=== PATIENT | male | born 1995 | race Two or more races ===

== ENCOUNTER 2017-05-03 18:49 | Emergency (ER) | payer OTHER ==
[2017-05-03 19:13] VITALS: BP 155/87; PULSE 78; RESP 18; TEMP 98.2
--- NOTE | 2017-05-03 19:22 | ED ---
General Adult HPI - General Chief complaint: Extremity Injury, Upper Stated complaint: Pain in hands in arms Time Seen by Provider: 05/03/17 19:14 Source: patient, RN notes reviewed Mode of arrival: ambulatory Limitations: no limitations - History of Present Illness Initial comments: 21-year-old male presents emergency Department chief complaint of numbness and tingling to fingers and pain in the forearm. 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 Patient states intensive does get sharp shooting pains. Patient has any falls traumas or injuries to the wrist. Patient states it's been getting worse over the last few weeks. Patient was concerned due to his symptoms he thought that he should be evaluated. Patient denies any recent fever, chills, shortness of breath, chest pain, back pain, abdominal pain, nausea vomiting, numbness or tingling, dysuria or hematuria, constipation or diarrhea, headaches or visual changes, or any other current symptoms. - Related Data Home Medications Medication Instructions Recorded Confirmed Acetaminophen Tab [Tylenol Tab] 975 mg PO BID PRN 05/03/17 05/03/17 Allergies Allergy/AdvReac Type Severity Reaction Status Date / Time No Known Allergies Allergy Verified 05/03/17 19:14 Review of Systems ROS Statement: Those systems with pertinent positive or pertinent negative responses have been documented in the HPI. ROS Other: All systems not noted in ROS Statement are negative. Past Medical History Past Medical History: No Reported History History of Any Multi-Drug Resistant Organisms: None Reported Past Surgical History: Appendectomy Past Psychological History: Anxiety, Depression Smoking Status: Current every day smoker Past Alcohol Use History: Occasional Past Drug Use History: Marijuana General Exam - General Exam Comments Initial Comments: General: The patient is awake and alert, in no distress, and does not appear acutely ill. Neck: The neck is supple, there is no tenderness or JVD. Cardiovascular: There is a regular rate and rhythm. No murmur, rub or gallop is appreciated. Respiratory: Lungs are clear to auscultation, respirations are non-labored, breath sounds are equal. No wheezes, stridor, rales, or rhonchi. Musculoskeletal: Sensation intact with 2+ pulses throughout bilateral upper changes from range of motion of bilateral elbows recent use. Patient has bilateral positive Tinel sign. No bony tenderness. Neurological: CN II-XII intact, There are no obvious motor or sensory deficits. Coordination appears grossly intact. Speech is normal. Skin: Skin is warm and dry and no rashes or lesions are noted. Psychiatric: Normal mood and affect. Limitations: no limitations Course Vital Signs 05/03/17 19:11 Temperature 98.2 F Pulse Rate 78 Respiratory 18 Rate Blood Pressure 155/87 O2 Sat by Pulse 98 Oximetry Medical Decision Making - Medical Decision Making 21-year-old male presents for what appears to be suspicious for carpal tunnel. This and we did write him a prescription for wrist splints. We discussed care follow-up and return parameters all patient's questions. They state Timothy they are given plan. They will be discharged home. Disposition Clinical Impression: Carpal tunnel syndrome on both sides Disposition: HOME SELF-CARE Condition: Stable Instructions: Paresthesia (ED) Additional Instructions: Please use medication as discussed. Please follow up with family doctor if symptoms have not improved over the next two days. Please return to the emergency room if your symptoms increase or worsen or for any other concerns. Referrals: Jonnathan Treadwell MD [Medical Doctor] - 1-2 days Time of Disposition: 19:21
== END 2017-05-03 19:41 | disposition home or self-care (01) ==
LOC: EC 18:49
DX: G56.03 Carpal tunnel syndrome, bilateral upper limbs (principal); F17.200 Nicotine dependence, unspecified, uncomplicated
CPT/HCPCS: 99283

== ENCOUNTER 2017-05-15 18:55 | Emergency (ER) | payer OTHER ==
--- NOTE | 2017-05-15 19:38 | ED ---
General Adult HPI - General Chief complaint: Dental/Oral Stated complaint: Dental Pain Time Seen by Provider: 05/15/17 19:20 Source: patient, RN notes reviewed Mode of arrival: ambulatory Limitations: no limitations - History of Present Illness Initial comments: 21-year-old male presents emergency department with a chief complaint of left- sided dental pain. Patient states that this started over the last few weeks over the last 5 days and getting worse. He has pain he has pain when he drinks. Patient denies any pain into the neck. Patient denies any difficulty opening closing the mouth. Patient denies any history of fevers. Patient does admit to a history of dental issues in the past. Patient denies any recent fever , chills, shortness of breath, chest pain, back pain, abdominal pain, nausea vomiting, numbness or tingling, dysuria or hematuria, constipation or diarrhea, headaches or visual changes, or any other current symptoms. - Related Data Home Medications Medication Instructions Recorded Confirmed Acetaminophen Tab [Tylenol Tab] 975 mg PO BID PRN 05/03/17 05/03/17 Allergies Allergy/AdvReac Type Severity Reaction Status Date / Time No Known Allergies Allergy Verified 05/15/17 19:14 Review of Systems ROS Statement: Those systems with pertinent positive or pertinent negative responses have been documented in the HPI. ROS Other: All systems not noted in ROS Statement are negative. Past Medical History Past Medical History: No Reported History History of Any Multi-Drug Resistant Organisms: None Reported Past Surgical History: Appendectomy Past Psychological History: Anxiety, Depression Smoking Status: Current every day smoker Past Alcohol Use History: Occasional Past Drug Use History: Marijuana General Exam Limitations: no limitations General appearance: alert, in no apparent distress Head exam: Present: atraumatic ENT exam: Present: normal exam, mucous membranes moist, other (Patient does appear to have eroded left tooth #18 no abscess, no gingival enlargement, diffuse poor dentition) Neck exam: Present: normal inspection. Absent: tenderness, meningismus, lymphadenopathy Respiratory exam: Present: normal lung sounds bilaterally. Absent: respiratory distress, wheezes, rales, rhonchi, stridor Cardiovascular Exam: Present: regular rate, normal rhythm, normal heart sounds. Absent: systolic murmur, diastolic murmur, rubs, gallop, clicks Back exam: Present: normal inspection Neurological exam: Present: alert, oriented X3 Psychiatric exam: Present: normal affect, normal mood Skin exam: Present: warm, dry, intact, normal color. Absent: rash Course Vital Signs 05/15/17 19:12 Temperature 97.8 F Pulse Rate 78 Respiratory 20 Rate Blood Pressure 184/98 O2 Sat by Pulse 99 Oximetry Medical Decision Making - Medical Decision Making Physical 21-year-old female presents emergency chief complaint of left-sided dental pain. This elicits patient denies any medication. We discussed proper the dentist. We discussed return parameters all patient's questions. He stated he understood and he is given plan. Discharged Disposition Clinical Impression: Dental caries Disposition: HOME SELF-CARE Condition: Stable Instructions: Dental Caries (ED) Additional Instructions: Please use medication as discussed. Please follow up with family doctor if symptoms have not improved over the next two days. Please return to the emergency room if your symptoms increase or worsen or for any other concerns. Referrals: Heber Tim MD [STAFF PHYSICIAN] - 1-2 days Time of Disposition: 19:38
[2017-05-15 19:55] VITALS: BP 168/80; PULSE 70; RESP 18; TEMP 98.2
== END 2017-05-15 19:54 | disposition home or self-care (01) ==
LOC: EC 18:55
DX: K02.9 Dental caries, unspecified (principal); F17.200 Nicotine dependence, unspecified, uncomplicated
CPT/HCPCS: 99282

== ENCOUNTER 2017-05-25 13:18 | Emergency (ER) | payer OTHER ==
[2017-05-25 13:24] VITALS: TEMP 98
[2017-05-25] MEDS ORDERED: ONDANSETRON 4 MG/2 ML VIAL IVP STA (14:50)
[2017-05-25] MEDS ORDERED: SODIUM CHLORIDE 0.9% 1,000 ML IV STA ×2 (14:50)
[2017-05-25] MEDS ORDERED: KETOROLAC 30 MG/ML 1 ML VIAL IVP STA (14:51)
--- NOTE | 2017-05-25 14:57 | ED ---
General Adult HPI - General Chief complaint: Nausea/Vomiting/Diarrhea Stated complaint: Vomiting Time Seen by Provider: 05/25/17 14:47 Source: patient, RN notes reviewed Mode of arrival: ambulatory Limitations: no limitations - History of Present Illness Initial comments: 21-year-old male presents with a 2 day history of nausea vomiting and diarrhea. Patient has coworkers with similar symptoms. Patient has crampy generalized abdominal pain. He also has reported some subjective fever and chills. Had one episode of vomiting today, several episodes yesterday. He has had diarrhea every time he has eaten over the past 24 hours. Patient is not currently on any medication. Has past surgical history of appendectomy. - Related Data Previous Rx's Medication Instructions Recorded Ondansetron Odt [Zofran Odt] 4 mg PO Q8HR PRN #10 tab 05/25/17 Allergies Allergy/AdvReac Type Severity Reaction Status Date / Time No Known Allergies Allergy Verified 05/25/17 13:24 Review of Systems ROS Statement: Those systems with pertinent positive or pertinent negative responses have been documented in the HPI. ROS Other: All systems not noted in ROS Statement are negative. Past Medical History Past Medical History: No Reported History History of Any Multi-Drug Resistant Organisms: None Reported Past Surgical History: Appendectomy Past Psychological History: Anxiety, Depression Smoking Status: Current every day smoker Past Alcohol Use History: Occasional Past Drug Use History: Marijuana General Exam Limitations: no limitations General appearance: alert, in no apparent distress Head exam: Present: atraumatic, normocephalic Eye exam: Present: normal appearance, PERRL ENT exam: Present: mucous membranes dry Neck exam: Present: normal inspection. Absent: tenderness Respiratory exam: Present: normal lung sounds bilaterally. Absent: respiratory distress Cardiovascular Exam: Present: regular rate, normal rhythm GI/Abdominal exam: Present: soft, tenderness (Mild epigastric tenderness). Absent: distended Extremities exam: Present: normal inspection, normal capillary refill. Absent: pedal edema Neurological exam: Present: alert, oriented X3 Psychiatric exam: Present: normal affect, normal mood Skin exam: Present: warm, dry, intact. Absent: cyanosis, diaphoretic Course Vital Signs 05/25/17 05/25/17 13:23 15:41 Temperature 98 F Pulse Rate 80 90 Respiratory 18 18 Rate Blood Pressure 164/85 148/96 O2 Sat by Pulse 96 100 Oximetry Medical Decision Making - Medical Decision Making 21-year-old male with no significant past medical history presents with chief complaint of nausea vomiting diarrhea. Patient's coworkers have similar symptoms. Last episode of vomiting was earlier this morning. On initial evaluation patient appears well-hydrated, no acute distress. Abdomen is soft. X-rays obtained, shows no acute findings. There is evidence of an enlarged liver. Patient is very obese. CBC CMP are unremarkable. Patient receives IV hydration, antiemetics. On reevaluation patient is feeling better. Has not had any vomiting while in emergency department. He will follow-up with his primary care physician in the next several days. - Lab Data Result diagrams: 05/25/17 14:55 05/25/17 14:55 Lab Results 05/25/17 05/25/17 Range/Units 14:55 14:55 WBC 8.1 (4.0-11.0) k/uL RBC 4.61 (4.30-5.90) m/uL Hgb 14.9 (13.0-17.5) gm/dL Hct 44.9 (39.0-53.0) % MCV 97.4 (80.0-100.0) fL MCH 32.3 (25.0-35.0) pg MCHC 33.1 (31.0-37.0) g/dL RDW 12.9 (11.5-15.5) % Plt Count 300 (150-450) k/uL Neutrophils % 57 % Lymphocytes % 28 % Monocytes % 6 % Eosinophils % 6 % Basophils % 1 % Neutrophils # 4.6 (1.3-7.7) k/uL Lymphocytes # 2.3 (1.0-4.8) k/uL Monocytes # 0.5 (0-1.0) k/uL Eosinophils # 0.5 (0-0.7) k/uL Basophils # 0.1 (0-0.2) k/uL Sodium 140 (137-145) mmol/L Potassium 4.5 (3.5-5.1) mmol/L Chloride 102 (98-107) mmol/L Carbon Dioxide 26 (22-30) mmol/L Anion Gap 12 mmol/L BUN 10 (9-20) mg/dL Creatinine 0.58 L (0.66-1.25) mg/dL Est GFR (MDRD) Af Amer >60 (>60 ml/min/1.73 sqM) Est GFR (MDRD) Non-Af >60 (>60 ml/min/1.73 sqM) Glucose 101 H (74-99) mg/dL Calcium 9.7 (8.4-10.2) mg/dL Total Bilirubin 0.2 (0.2-1.3) mg/dL AST 29 (17-59) U/L ALT 66 (21-72) U/L Alkaline Phosphatase 54 (38-126) U/L Total Protein 7.9 (6.3-8.2) g/dL Albumin 4.7 (3.5-5.0) g/dL Amylase <30 L (30-110) U/L Lipase 63 (23-300) U/L Disposition Clinical Impression: Nausea & vomiting Disposition: HOME SELF-CARE Condition: Good Instructions: Acute Nausea and Vomiting (ED), Acute Diarrhea (ED) Prescriptions: Ondansetron Odt [Zofran Odt] 4 mg PO Q8HR PRN #10 tab PRN Reason: Vomiting Referrals: None,Stated [Primary Care Provider] - 1-2 days Time of Disposition: 15:48
[2017-05-25 15:16] LABS: Basophils # (A) 0.1 k/uL (0-0.2); Basophils % (A) 1 %; Eosinophils # (A) 0.5 k/uL (0-0.7); Eosinophils % (A) 6 %; HCT 44.9 % (39.0-53.0); HDW 2.25; HGB 14.9 gm/dL (13.0-17.5); Luc # (Auto) 0.14; Luc % (Auto) 2; Lymphocytes # (A) 2.3 k/uL (1.0-4.8); Lymphocytes % (A) 28 %; MCH 32.3 pg (25.0-35.0); MCHC 33.1 g/dL (31.0-37.0); MCV 97.4 fL (80.0-100.0); Mean Platelet Volume 7.3; Monocytes # (A) 0.5 k/uL (0-1.0); Monocytes % (A) 6 %; Neutrophils # (A) 4.6 k/uL (1.3-7.7); Neutrophils % (A) 57 %; RBC 4.61 m/uL (4.30-5.90); RDW 12.9 % (11.5-15.5); WBC 8.1 k/uL (4.0-11.0); WBC (Perox) 8.09
--- NOTE | 2017-05-25 15:23 | XR ---
Abdomen HISTORY: Nausea vomiting and diarrhea Frontal view of the abdomen submitted on 2 images No comparisons The lung bases are clear. There is no bowel obstruction or pneumoperitoneum evident. Bone mineralizat ion is maintained. No evident pathologic calcification. The liver may be enlarged. IMPRESSION: Nonobstructive bowel gas pattern. Additional findings above.
[2017-05-25 15:29] LABS: ALT 66 U/L (21-72); AST 29 U/L (17-59); Alkaline Phosphatase 54 U/L (38-126); Amylase <30 U/L (30-110); Anion Gap 12 mmol/L; Blood Urea Nitrogen 10 mg/dL (9-20); Calcium 9.7 mg/dL (8.4-10.2); Carbon Dioxide 26 mmol/L (22-30); Chloride 102 mmol/L (98-107); Glucose 101 mg/dL (74-99); Non-African American GFR(MDRD) >60 (>60 ml/min/1.73 sqM); Potassium 4.5 mmol/L (3.5-5.1); Sodium 140 mmol/L (137-145); Total Bilirubin 0.2 mg/dL (0.2-1.3); Total Protein 7.9 g/dL (6.3-8.2)
[2017-05-25 16:01] VITALS: BP 162/85; PULSE 63; RESP 16
== END 2017-05-25 16:01 | disposition home or self-care (01) ==
LOC: EC 13:18
DX: R11.2 Nausea with vomiting, unspecified (principal); R19.7 Diarrhea, unspecified; R10.84 Generalized abdominal pain; F17.200 Nicotine dependence, unspecified, uncomplicated; Z90.49 Acquired absence of other specified parts of digestive tract
CPT/HCPCS: 36415; 80053; 82150; 83690; 85025; 74000; 99284; 96374; 96375; 96361; J2405; J1885

== ENCOUNTER 2017-06-07 14:49 | Emergency (ER) | payer SELFPAY ==
[2017-06-07 15:15] VITALS: BP 179/91; PULSE 97; RESP 18; TEMP 97.7
--- NOTE | 2017-06-07 15:20 | ED ---
General Adult HPI - General Chief complaint: Dental/Oral Stated complaint: Dental Pain Time Seen by Provider: 06/07/17 14:58 Source: patient, RN notes reviewed, old records reviewed Mode of arrival: ambulatory Limitations: no limitations - History of Present Illness Initial comments: Patient 21-year-old male who presents emergency room today with chief complaint of dental pain. He does not that he's had dental pain on and off over the last month. States seen here in the past 4 days. Has not taken any medications for this. States she's been unable to follow up with dentist. He denies any other complaints. States pain is worse to the left lower jaw he feels that there is some swelling in this area. Patient denies any recent fever, chills, shortness of breath, chest pain, back pain, abdominal pain, nausea or vomiting, numbness or tingling, dysuria or hematuria, constipation or diarrhea, headaches or visual changes, or any other complaints. - Related Data Home Medications Medication Instructions Recorded Confirmed Acetaminophen Tab [Tylenol Tab] 975 mg PO Q6H PRN 06/07/17 06/07/17 Ibuprofen [Motrin] 800 mg PO TID PRN 06/07/17 06/07/17 Previous Rx's Medication Instructions Recorded Acetaminophen-Codeine 300-30mg 1 each PO Q6H PRN #10 tablet 06/07/17 [Tylenol #3] Ibuprofen [Motrin] 600 mg PO Q6HR PRN #30 day 06/07/17 Penicillin V Potassium [Pen Vee K] 500 mg PO QID 10 Days 06/07/17 Allergies Allergy/AdvReac Type Severity Reaction Status Date / Time No Known Allergies Allergy Verified 06/07/17 15:12 Review of Systems ROS Statement: Those systems with pertinent positive or pertinent negative responses have been documented in the HPI. ROS Other: All systems not noted in ROS Statement are negative. Past Medical History Past Medical History: No Reported History History of Any Multi-Drug Resistant Organisms: None Reported Past Surgical History: Appendectomy Past Psychological History: Anxiety, Depression Smoking Status: Current every day smoker Past Alcohol Use History: Occasional Past Drug Use History: Marijuana General Exam - General Exam Comments Initial Comments: General: The patient is awake and alert, in no distress, and does not appear acutely ill. Eye: Pupils are equal, round and reactive to light, extra-ocular movements are intact. No nystagmus. There is normal conjunctiva bilaterally. No signs of icterus. Ears, nose, mouth and throat: There are moist mucous membranes and no oral lesions. Neck: The neck is supple, there is no tenderness or JVD. Cardiovascular: There is a regular rate and rhythm. No murmur, rub or gallop is appreciated. Respiratory: Lungs are clear to auscultation, respirations are non-labored, breath sounds are equal. No wheezes, stridor, rales, or rhonchi. Musculoskeletal: Normal ROM, no tenderness. Strength 5/5. Sensation intact. Pulses equal bilaterally 2+. Neurological: A&O x 3. CN II-XII intact, There are no obvious motor or sensory deficits. Coordination appears grossly intact. Speech is normal. Skin: Skin is warm and dry and no rashes or lesions are noted. Psychiatric: Cooperative, appropriate mood & affect, normal judgment. Limitations: no limitations Course Vital Signs 06/07/17 14:55 Temperature 97.7 F Pulse Rate 97 Respiratory 18 Rate Blood Pressure 179/91 O2 Sat by Pulse 96 Oximetry Medical Decision Making - Medical Decision Making Patient will be started on antibiotic. During short prescription pain medication to use. Advised may make him drowsy that she uses at night to help him sleep. Advised follow-up with dentist as soon as possible. Advised return for concerns. Disposition Clinical Impression: Pain, dental Disposition: HOME SELF-CARE Condition: Good Instructions: Toothache (ED) Additional Instructions: Please follow-up with dentist as soon as possible. Please use medication as prescribed. Be aware that pain medication may make you drowsy. Please return to emergency room for any other concerns. Prescriptions: Acetaminophen-Codeine 300-30mg [Tylenol #3] 1 each PO Q6H PRN #10 tablet PRN Reason: Pain Ibuprofen [Motrin] 600 mg PO Q6HR PRN #30 day PRN Reason: Pain Penicillin V Potassium [Pen Vee K] 500 mg PO QID 10 Days Referrals: None,Stated [Primary Care Provider] - 1-2 days Time of Disposition: 15:19
== END 2017-06-07 15:31 | disposition home or self-care (01) ==
LOC: EC 14:49
DX: K08.89 Other specified disorders of teeth and supporting structures (principal); F17.200 Nicotine dependence, unspecified, uncomplicated
CPT/HCPCS: 99283

== ENCOUNTER 2018-03-11 13:24 | Emergency (ER) | payer OTHER ==
[2018-03-11 13:38] VITALS: BP 167/98; PULSE 68; RESP 18; TEMP 97.6
--- NOTE | 2018-03-11 15:22 | ED ---
ENT HPI - General Chief complaint: Dental/Oral Stated complaint: dental pain Time Seen by Provider: 03/11/18 13:55 Source: patient Mode of arrival: ambulatory Limitations: no limitations - History of Present Illness Initial comments: The 22-year-old male with past medical history of previous dental abscess who presents today for chief complaint of increasing tooth pain and mild facial swelling 3 days. Patient states that he has had a hole in his left back tooth , this is tooth #18 as well as tooth #15 for over a year. 3 days ago he began to have increasing pain in both the teeth, he saw a hole in tooth #18 of which she bought [id number] which he cannot recall the name to fill the whole. He tried taking 2 Motrin a day and attempt to alleviate the pain however because he was in tears today because of the pain he decided present to the emergency department. Patient denies swelling under the tongue, difficulty breathing, pain with swallowing, neck swelling, chest pain, shortness of breath , ear pain, fever or chills. Patient states this feels exactly like when he had a tooth abscess in the past and had have the tooth removed. in addition patient denies any recent back pain, abdominal pain, nausea or vomiting, numbness or tingling, dysuria or hematuria, constipation or diarrhea, headaches or visual changes, or any other complaints. She denies drug ALLERGIES and has not been any recentantibiotics. - Related Data Home Medications Medication Instructions Recorded Confirmed Acetaminophen Tab [Tylenol Tab] 975 mg PO Q6H PRN 06/07/17 06/07/17 Ibuprofen [Motrin] 800 mg PO TID PRN 06/07/17 06/07/17 Previous Rx's Medication Instructions Recorded Acetaminophen-Codeine 300-30mg 1 each PO Q6H PRN #10 tablet 06/07/17 [Tylenol #3] Ibuprofen [Motrin] 600 mg PO Q6HR PRN #30 day 06/07/17 Penicillin V Potassium [Pen Vee K] 500 mg PO QID 10 Days day 06/07/17 Ibuprofen [Motrin] 800 mg PO Q6H PRN 7 Days #28 tab 03/11/18 Penicillin V Potassium [Pen Vee K] 500 mg PO QID 7 Days #28 tablet 03/11/18 Allergies Allergy/AdvReac Type Severity Reaction Status Date / Time No Known Allergies Allergy Verified 03/11/18 13:36 Review of Systems ROS Statement: Those systems with pertinent positive or pertinent negative responses have been documented in the HPI. ROS Other: All systems not noted in ROS Statement are negative. Constitutional: Denies: fever, chills Eyes: Denies: eye pain ENT: Reports: as per HPI, dental pain. Denies: ear pain, throat pain Respiratory: Denies: cough, dyspnea Cardiovascular: Denies: chest pain, palpitations Endocrine: Denies: fatigue Gastrointestinal: Denies: abdominal pain, nausea, vomiting Genitourinary: Denies: urgency, dysuria, frequency Skin: Reports: as per HPI Neurological: Denies: headache, weakness Hematological/Lymphatic: Denies: swollen glands Past Medical History Past Medical History: No Reported History History of Any Multi-Drug Resistant Organisms: None Reported Past Surgical History: Appendectomy Past Psychological History: Anxiety, Depression Smoking Status: Current every day smoker Past Alcohol Use History: Occasional Past Drug Use History: Marijuana General Exam - General Exam Comments Initial Comments: General: The patient is awake and alert, in no distress, and does not appear acutely ill. Eye: Pupils are equal, round and reactive to light, extra-ocular movements are intact. No nystagmus. There is normal conjunctiva bilaterally. No signs of icterus. Ears, nose, mouth and throat: There are moist mucous membranes and no oral lesions. There is mild edema of the left side his his face, no swelling both low the angle of the mandible. No swelling or masses below the tongue. No palpable cervical lymph nodes. Examination of the left ear benign. Tooth #15 crackeed and tooth #18 is filled with white putty like substance, appears to be filling a hole. There is tenderness to percussion of tooth #18 in tooth #15, no evidence of areas of focal fluctuance,or sinus tracking. there is edema of the the buccal mucosa on the left side of the upper and lower jaw. Neck: The neck is supple, there is no tenderness or JVD. Cardiovascular: There is a regular rate and rhythm. No murmur, rub or gallop is appreciated. Respiratory: Lungs are clear to auscultation, respirations are non-labored, breath sounds are equal. No wheezes, stridor, rales, or rhonchi..] Musculoskeletal: Normal ROM, upon gross exam. Strength 5/5. Sensation intact. Pulses equal bilaterally 2+. Neurological: A&O x 3. CN II-XII intact, There are no obvious motor or sensory deficits. Coordination appears grossly intact. Speech is normal. Skin: Skin is warm and dry and no rashes or lesions are noted. Mild swelling of the left side of face. Psychiatric: Cooperative, appropriate mood & affect, normal judgment. Limitations: no limitations Course Vital Signs 03/11/18 13:36 Temperature 97.6 F Pulse Rate 68 Respiratory 18 Rate Blood Pressure 167/98 O2 Sat by Pulse 99 Oximetry Medical Decision Making - Medical Decision Making This is a 22-year-old male past medical history previous dental abscess presents today for tooth pain 3 days. Patient is taking Motrin 2x day attempt to alleviate the pain which helped minimally. Patient presents for uncontrolled pain. Patient is NO KNOWN DRUG ALLERGIES. On exam there is pain to percussion of tooth #18, tooth #15. Tooth #15 is cracked. Tooth #18 appears to be filled with a putty-like substance. No palpable fluctuant area, and mild edema of the left buccal mucosa. No sign of Frandy angina. afebrile. Given history of physical exam findings, I do feel that this is a possible periapical abscess of tooth #15 & tooth #18- due to to pain with percussion of the teeth. The case was discussed with Dr. Tim who agrees with dx and feels at this time the patient is to follow-up with his dentist or oral surgery for tooth extraction and be given RX for PVK for infection prevention as well as ibuprofen 800mg for pain relief. Pt agrees with plan and is discharged in stable condition. Pt told educated on signs of worsening symptoms and infection told to return to the ED if the symptoms worsen. Disposition Clinical Impression: Periapical abscess Disposition: HOME SELF-CARE Condition: Good Instructions: Dental Abscess (ED), Toothache (ED) Additional Instructions: Please use medication as discussed. Please follow-up with dentist or oral surgery in the next 2 days regardless if symptoms improve with treatment. Please return to emergency room if the symptoms increase or worsen or for any other concerns. Prescriptions: Ibuprofen [Motrin] 800 mg PO Q6H PRN 7 Days #28 tab PRN Reason: Pain Penicillin V Potassium [Pen Vee K] 500 mg PO QID 7 Days #28 tablet Is patient prescribed a controlled substance at d/c from ED?: No Referrals: None,Stated [Primary Care Provider] - 1-2 days Heber Vizcarra DDS [STAFF PHYSICIAN] - 1-2 days Time of Disposition: 15:25
== END 2018-03-11 15:30 | disposition home or self-care (01) ==
LOC: EC 13:24
DX: K04.7 Periapical abscess without sinus (principal); F17.200 Nicotine dependence, unspecified, uncomplicated
CPT/HCPCS: 99282

== ENCOUNTER 2018-03-18 12:41 | Emergency (ER) | payer OTHER ==
[2018-03-18 12:58] VITALS: BP 148/89; PULSE 67; RESP 18; TEMP 97.5
[2018-03-18] MEDS ORDERED: ACET/COD 300 MG/30 MG STARTER PACK 6 TAB BTL PO STA (13:10)
--- NOTE | 2018-03-18 13:11 | ED ---
General Adult HPI - General Chief complaint: Dental/Oral Stated complaint: dental pain Source: patient, RN notes reviewed Mode of arrival: ambulatory Limitations: no limitations - History of Present Illness Initial comments: Patient 22 year-old male presented to the emergency room today with a chief complaint of increased dental pain. Patient does admit that he's had dental pain for 3 years. Patient states that over the last week she's been having increased pain. He states it's both in the upper and lower jaw the left side. He denies any drainage or discharge. He states been using Motrin along with ibuprofen/Tylenol. He states he was started on penicillin seeing her the emergency room. Patient states he is waiting to get into his dentist he has an appointment this Sunday. Patient since return to the emergency room because he is having increased pain. Patient denies any recent fever, chills, shortness of breath, chest pain, back pain, abdominal pain, nausea or vomiting, numbness or tingling, dysuria or hematuria, constipation or diarrhea, headaches or visual changes, or any other complaints. - Related Data Home Medications Medication Instructions Recorded Confirmed Acetaminophen Tab [Tylenol Tab] 975 mg PO Q6H PRN 06/07/17 06/07/17 Ibuprofen [Motrin] 800 mg PO TID PRN 06/07/17 06/07/17 Previous Rx's Medication Instructions Recorded Acetaminophen-Codeine 300-30mg 1 each PO Q6H PRN #10 tablet 06/07/17 [Tylenol #3] Ibuprofen [Motrin] 600 mg PO Q6HR PRN #30 day 06/07/17 Penicillin V Potassium [Pen Vee K] 500 mg PO QID 10 Days day 06/07/17 Ibuprofen [Motrin] 800 mg PO Q6H PRN 7 Days #28 tab 03/11/18 Penicillin V Potassium [Pen Vee K] 500 mg PO QID 7 Days #28 tablet 03/11/18 Clindamycin HCl 300 mg PO Q6H #40 cap 03/18/18 Allergies Allergy/AdvReac Type Severity Reaction Status Date / Time No Known Allergies Allergy Verified 03/18/18 12:58 Review of Systems ROS Statement: Those systems with pertinent positive or pertinent negative responses have been documented in the HPI. ROS Other: All systems not noted in ROS Statement are negative. Past Medical History Past Medical History: No Reported History History of Any Multi-Drug Resistant Organisms: None Reported Past Surgical History: Appendectomy Past Psychological History: Anxiety, Depression Smoking Status: Current every day smoker Past Alcohol Use History: Occasional Past Drug Use History: Marijuana General Exam - General Exam Comments Initial Comments: General: The patient is awake and alert Eye: Pupils are equal, round and reactive to light, extra-ocular movements are intact. No nystagmus. There is normal conjunctiva bilaterally. No signs of icterus. Ears, nose, mouth and throat: There are moist mucous membranes and no oral lesions. Neck: The neck is supple Musculoskeletal: Normal ROM, no tenderness. Strength 5/5. Sensation intact. Pulses equal bilaterally 2+. Neurological: A&O x 3. CN II-XII intact, There are no obvious motor or sensory deficits. Coordination appears grossly intact. Speech is normal. Skin: Skin is warm and dry and no rashes or lesions are noted. Psychiatric: Cooperative, appropriate mood & affect, normal judgment. Limitations: no limitations Course Vital Signs 03/18/18 12:56 Temperature 97.5 F L Pulse Rate 67 Respiratory 18 Rate Blood Pressure 148/89 O2 Sat by Pulse 99 Oximetry Medical Decision Making - Medical Decision Making Patient will be given prescription for clindamycin. He is advised follow-up with dentist. Will be given a starter pack Tylenol codeine here in the emergency room. Disposition Clinical Impression: Pain, dental Disposition: HOME SELF-CARE Condition: Good Instructions: Toothache (ED) Additional Instructions: Please follow-up with dentist and use antibiotic and pain medication as discussed. [facility] [address] [id number] [phone]) (existing clients only) For new clients: [phone] [facility] Pay $50 for x-rays and the rest discovered [phone] Prescriptions: Clindamycin HCl 300 mg PO Q6H #40 cap Is patient prescribed a controlled substance at d/c from ED?: No Referrals: None,Stated [Primary Care Provider] - 1-2 days Time of Disposition: 13:10
== END 2018-03-18 13:24 | disposition home or self-care (01) ==
LOC: EC 12:41
DX: K08.89 Other specified disorders of teeth and supporting structures (principal); F17.200 Nicotine dependence, unspecified, uncomplicated
CPT/HCPCS: 99282

== ENCOUNTER 2018-07-21 14:05 | Emergency (ER) | payer OTHER ==
[2018-07-21 14:09] VITALS: BP 161/93; PULSE 104; RESP 20; TEMP 97.8
[2018-07-21] MEDS ORDERED: KETOROLAC 30 MG/ML 1 ML VIAL IM STA (14:30)
--- NOTE | 2018-07-21 15:04 | ED ---
General Adult HPI - General Chief complaint: Extremity Injury, Lower Stated complaint: Knee pain Time Seen by Provider: 07/21/18 14:11 Source: patient, RN notes reviewed Mode of arrival: wheelchair Limitations: physical limitation - History of Present Illness Initial comments: 22-year-old male presents to the emergency department for a chief complaint of left knee pain 1 hour. Patient [place] a seaw[place]. He states he fell forward onto his left knee. Patient denies hyperextending the knee. He complains of pain both in the anterior and posterior aspect of the left knee. Patient denies any other injuries. He did not hit his head. He states he cannot bear weight on the left knee. He states he is very anxious at this time but cannot have any medications for this as he is on probation. - Related Data Home Medications Medication Instructions Recorded Confirmed Acetaminophen Tab [Tylenol Tab] 975 mg PO Q6H PRN 06/07/17 06/07/17 Ibuprofen [Motrin] 800 mg PO TID PRN 06/07/17 06/07/17 Previous Rx's Medication Instructions Recorded Acetaminophen-Codeine 300-30mg 1 each PO Q6H PRN #10 tablet 06/07/17 [Tylenol #3] Ibuprofen [Motrin] 600 mg PO Q6HR PRN #30 day 06/07/17 Penicillin V Potassium [Pen Vee K] 500 mg PO QID 10 Days day 06/07/17 Ibuprofen [Motrin] 800 mg PO Q6H PRN 7 Days #28 tab 03/11/18 Penicillin V Potassium [Pen Vee K] 500 mg PO QID 7 Days #28 tablet 03/11/18 Clindamycin HCl 300 mg PO Q6H #40 cap 03/18/18 Penicillin V Potassium [Pen Vee K] 500 mg PO Q6H 10 Days tablet 07/21/18 Allergies Allergy/AdvReac Type Severity Reaction Status Date / Time No Known Allergies Allergy Verified 07/21/18 14:09 Review of Systems ROS Statement: Those systems with pertinent positive or pertinent negative responses have been documented in the HPI. ROS Other: All systems not noted in ROS Statement are negative. Past Medical History Past Medical History: No Reported History History of Any Multi-Drug Resistant Organisms: None Reported Past Surgical History: Appendectomy Past Psychological History: Anxiety, Depression Smoking Status: Current every day smoker Past Alcohol Use History: Occasional Past Drug Use History: Marijuana General Exam Limitations: physical limitation General appearance: alert, in no apparent distress Head exam: Present: atraumatic, normocephalic, normal inspection Eye exam: Present: normal appearance, PERRL, EOMI. Absent: scleral icterus, conjunctival injection, periorbital swelling ENT exam: Present: normal exam, mucous membranes moist Neck exam: Present: normal inspection, full ROM. Absent: tenderness, meningismus, lymphadenopathy Respiratory exam: Present: normal lung sounds bilaterally. Absent: respiratory distress, wheezes, rales, rhonchi, stridor Cardiovascular Exam: Present: regular rate, normal rhythm, normal heart sounds. Absent: systolic murmur, diastolic murmur, rubs, gallop, clicks Extremities exam: Present: tenderness (Generalized tenderness of the anterior and posterior left knee.), normal capillary refill (Capillary refill less than 2 seconds), other (Sensation intact in the left lower extremity). Absent: full ROM (Patient refuses to attempt range of motion of the left knee), joint swelling (No significant joint swelling noted) Neurological exam: Present: alert, oriented X3, CN II-XII intact Psychiatric exam: Present: normal affect, normal mood Course Vital Signs 07/21/18 14:07 Temperature 97.8 F Pulse Rate 104 H Respiratory 20 Rate Blood Pressure 161/93 O2 Sat by Pulse 98 Oximetry Medical Decision Making - Medical Decision Making 22-year-old male presents to the emergency department for a chief complaint of left knee pain 1 hour. Patient was running when he fell trying to jump over a seawall. Patient states he fell with a flexed left knee. He denies hyperextending the knee. He states he is unable to bear weight on the knee due to pain. Patient is very anxious. He was given Toradol for pain which did help significantly. On exam no significant swelling of the left knee noted. Patient refuses to do range of motion. He is noted to extend the knee to full extension with about 20 flexion of the left knee but refuses any attempts for further flexion. He refuses to try to stand or walk on the knee. Patient does have strong Doppler pulses of the left DP and PT pulses. These are equal in the right foot. Left foot is warm and capillary refill is less than 2 seconds. No pain in the calf. X-ray of the tib-fib showed no acute osseous abnormality. X-ray of the left knee showed a small to moderate joint effusion without acute osseous abnormality. Discussed with patient that at this time we do not see fracture however patient may have ligamentous or meniscal injuries. He will need further evaluation by ortho which she is aware of. He was planning on the immobilizer and given a prescription for crutches. He'll remain nonweightbearing. He will follow up with orthopedics in one to 2 days. He will return here if has any worsening symptoms. He will take Motrin and tylenol for pain. Eye discharge patient also complained of left upper tooth pain. No abscess palpated. Patient was given penicillin. He was also given the phone number to [facility] on his discharge paperwork in writing. He will follow up with them. He denies fevers or chills, trismus, neck pain or stiffness, swelling under the tongue. Disposition Clinical Impression: Knee pain, left Disposition: HOME SELF-CARE Condition: Good Instructions: Knee Pain (ED) Additional Instructions: Please take Motrin and Tylenol for pain. Please use knee immobilizer and crutches. Please follow-up with orthopedics in one to 2 days. Return here to the emergency department if you have any worsening symptoms. Prescriptions: Penicillin V Potassium [Pen Vee K] 500 mg PO Q6H 10 Days tablet Is patient prescribed a controlled substance at d/c from ED?: No Referrals: Bean Martinez DO [Doctor of Osteopathic Medicine] - 1-2 days Time of Disposition: 16:38
--- NOTE | 2018-07-21 16:04 | XR ---
EXAMINATION TYPE: XR tibia fibula LT DATE OF EXAM: 07/21/2018 COMPARISON: None HISTORY: Pain, fall TECHNIQUE: 2 view left tibia and fibula FINDINGS: No acute fractures are evident. Joint spaces are preserved. Calcifications within the subcu taneous tissues of the anterior mid foreleg. No acute osseous abnormality is evident. IMPRESSION: 1. No acute osseous abnormality left foreleg
--- NOTE | 2018-07-21 16:06 | XR ---
EXAMINATION TYPE: XR knee 4V LT DATE OF EXAM: 07/21/2018 COMPARISON: None HISTORY: Fall, pain TECHNIQUE: 3 view left knee FINDINGS: Joint spaces preserved. No acute fractures are evident. Small to moderate joint effusion ma y be present. IMPRESSION: 1. Joint effusion. 2. No acute osseous abnormality.
== END 2018-07-21 16:49 | disposition home or self-care (01) ==
LOC: EC 14:05
DX: M25.462 Effusion, left knee (principal); Z53.29 Procedure and treatment not carried out because of patient's decision for other reasons; F17.200 Nicotine dependence, unspecified, uncomplicated
CPT/HCPCS: 73590; 73564; 99283; 96372; J1885

== ENCOUNTER 2020-09-07 10:57 | Emergency (ER) | payer OTHER ==
[2020-09-07] MEDS ORDERED: LORazepam 1 MG TAB PO STA ×2 (11:44→12:49)
--- NOTE | 2020-09-07 13:29 | ED ---
General Adult HPI - General Source: family, RN notes reviewed Mode of arrival: ambulatory Limitations: no limitations <Lon Mcarthur - Last Filed: 09/07/20 13:28> <Nader Harvey - Last Filed: 09/07/20 16:07> - General Chief complaint: Urogenital Stated complaint: Anxiety Attack Time Seen by Provider: 09/07/20 11:29 - History of Present Illness Initial comments: This a 25-year-old male presents emergency Department chief complaint of severe anxiety. Patient states she's been having worsening symptoms for several days. He states he cannot get himself under control. He states his been crying, tearful. He states that he just doesn't feel right. He states he gets so anxious that he gets tingly all over. He also states that he has been drinking more and he states he tried drinking this evening his symptoms are better which didn't. He denies any fevers chills abdominal pain denies emesis or homicidal no drug use. Patient states that he is also concerned about his of masturbating. Patient states he's unsure about what he is doing, he states he feels that he needs help.. (Lon Mcarthur) - Related Data Home Medications Medication Instructions Recorded Confirmed diphenhydrAMINE HCL [Benadryl] 50 mg PO HS 09/07/20 09/07/20 Allergies Allergy/AdvReac Type Severity Reaction Status Date / Time No Known Allergies Allergy Verified 09/07/20 12:24 Review of Systems ROS Other: All systems not noted in ROS Statement are negative. <Lon Mcarthur - Last Filed: 09/07/20 13:28> ROS Other: All systems not noted in ROS Statement are negative. <Nader Harvey - Last Filed: 09/07/20 16:07> ROS Statement: Those systems with pertinent positive or pertinent negative responses have been documented in the HPI. Past Medical History Past Medical History: No Reported History Additional Past Medical History / Comment(s): irregular heart beat as a child per patient History of Any Multi-Drug Resistant Organisms: None Reported Past Surgical History: Appendectomy Past Psychological History: Anxiety, Depression Smoking Status: Current every day smoker Past Alcohol Use History: Daily Past Drug Use History: Marijuana <Lon Mcarthur - Last Filed: 09/07/20 13:28> General Exam Limitations: no limitations General appearance: alert, in no apparent distress, anxious, other (Patient is tearful) Head exam: Present: atraumatic, normocephalic, normal inspection Eye exam: Present: normal appearance, PERRL, EOMI. Absent: scleral icterus, conjunctival injection, periorbital swelling ENT exam: Present: normal exam, mucous membranes moist Neck exam: Present: normal inspection. Absent: tenderness, meningismus, lymphadenopathy Respiratory exam: Present: normal lung sounds bilaterally. Absent: respiratory distress, wheezes, rales, rhonchi, stridor Cardiovascular Exam: Present: regular rate, normal rhythm, normal heart sounds. Absent: systolic murmur, diastolic murmur, rubs, gallop, clicks GI/Abdominal exam: Present: soft, normal bowel sounds. Absent: distended, tenderness, guarding, rebound, rigid Neurological exam: Present: alert Psychiatric exam: Present: anxious Skin exam: Present: warm, dry, intact, normal color. Absent: rash <Lon Mcarthur - Last Filed: 09/07/20 13:28> Course Vital Signs 09/07/20 11:26 Temperature 98.6 F Pulse Rate 94 Respiratory 18 Rate Blood Pressure 161/93 O2 Sat by Pulse 97 Oximetry Medical Decision Making <Nader Harvey - Last Filed: 09/07/20 16:07> - Medical Decision Making Care was signed out to me at 1400 by Lon EUBANKS. I did reevaluate patient who is tearful and anxious. At this time he passes recommending admission. Patient will need to be transferred given his weight is over the weight limit of our psychiatric facility. Patient is aware of this and is agreeable. (Nader Harvey) - Lab Data Lab Results 09/07/20 Range/Units 13:42 Urine Opiates Screen Not Detected (NotDetected) Ur Oxycodone Screen Not Detected (NotDetected) Urine Methadone Screen Not Detected (NotDetected) Ur Propoxyphene Screen Not Detected (NotDetected) Ur Barbiturates Screen Not Detected (NotDetected) U Tricyclic Antidepress Not Detected (NotDetected) Ur Phencyclidine Scrn Not Detected (NotDetected) Ur Amphetamines Screen Not Detected (NotDetected) U Methamphetamines Scrn Not Detected (NotDetected) U Benzodiazepines Scrn Detected H (NotDetected) Urine Cocaine Screen Not Detected (NotDetected) U Marijuana (THC) Screen Detected H (NotDetected) Disposition <Lon Mcarthur - Last Filed: 09/07/20 13:28> Is patient prescribed a controlled substance at d/c from ED?: No Time of Disposition: 16:07 <Nader Harvey P - Last Filed: 09/07/20 16:07> Clinical Impression: Anxiety Disposition: TRANSFER TO PSYCH HOSP/UNIT Referrals: None,Stated [Primary Care Provider] - 1-2 days
[2020-09-07 14:11] LABS: Amphetamine Screen,Urine Not Detected (NotDetected); Barbiturate Screen,Urine Not Detected (NotDetected); Benzodiazepines Screen,Urine Detected (NotDetected); Cocaine Screen,Urine Not Detected (NotDetected); Methadone Screen, Urine Not Detected (NotDetected); Opiate Screen,Urine Not Detected (NotDetected); Oxycodone Screen, Urine Not Detected (NotDetected); Phencyclidine Screen,Urine Not Detected (NotDetected); Tricyclic Antidepressant,Urine Not Detected (NotDetected); Urn Cannabinoid Scrn Detected (NotDetected)
[2020-09-07] MEDS ORDERED: ACETAMINOPHEN TAB 500 MG TAB PO STA (16:27)
[2020-09-07 16:36] LABS: Basophils # (A) 0.2 k/uL (0-0.2); Basophils % (A) 2 %; Eosinophils # (A) 0.3 k/uL (0-0.7); Eosinophils % (A) 3 %; HCT 47.7 % (39.0-53.0); HGB 16.5 gm/dL (13.0-17.5); Lymphocytes # (A) 2.5 k/uL (1.0-4.8); Lymphocytes % (A) 24 %; MCH 32.7 pg (25.0-35.0); MCHC 34.5 g/dL (31.0-37.0); MCV 94.7 fL (80.0-100.0); Mean Platelet Volume 6.7; Monocytes # (A) 0.6 k/uL (0-1.0); Monocytes % (A) 6 %; Neutrophils # (A) 6.8 k/uL (1.3-7.7); Neutrophils % (A) 65 %; Platelet Count 321 k/uL (150-450); RBC 5.04 m/uL (4.30-5.90); RDW 11.9 % (11.5-15.5); WBC 10.3 k/uL (3.8-10.6)
[2020-09-07 16:39] LABS: Appearance,Urine Clear (Clear); Bilirubin,Urine Negative (Negative); Blood,Urine Negative (Negative); Color,Urine Yellow; Glucose,Urine (UA) Negative (Negative); Ketones,Urine Negative (Negative); Leukocyte Esterase,Urine Negative (Negative); Nitrite,Urine Negative (Negative); PH, Urine 6.5 (5.0-8.0); Protein,Urine Trace (Negative); Specific Gravity,Urine 1.025 (1.001-1.035); Urobilinogen,Urine <2.0 mg/dL (<2.0)
[2020-09-07 16:47] LABS: ALT 99 U/L (4-49); AST 53 U/L (17-59); African American GFR (CKD) >90 (>60 ml/min/1.73 sqM); Albumin 4.8 g/dL (3.5-5.0); Alkaline Phosphatase 62 U/L (38-126); Anion Gap 8 mmol/L; Blood Urea Nitrogen 10 mg/dL (9-20); Calcium 9.9 mg/dL (8.4-10.2); Carbon Dioxide 26 mmol/L (22-30); Chloride 102 mmol/L (98-107); Glucose 100 mg/dL (74-99); Non-African American GFR(CKD) >90 (>60 ml/min/1.73 sqM); Potassium 4.1 mmol/L (3.5-5.1); Sodium 136 mmol/L (137-145); Total Bilirubin 0.7 mg/dL (0.2-1.3); Total Protein 8.2 g/dL (6.3-8.2)
[2020-09-07] MEDS ORDERED: LORazepam 2 MG/ML INJ IV PRN (17:00)
[2020-09-07] MEDS: LORazepam 2 MG/ML INJ IV PRN ×2 (17:08→20:54)
[2020-09-08] MEDS: LORazepam 2 MG/ML INJ IV PRN ×7 (00:12→22:07)
[2020-09-09 01:15] VITALS: RESP 18
[2020-09-09] MEDS: LORazepam 2 MG/ML INJ IV PRN ×5 (02:57→17:03)
[2020-09-09 14:19] VITALS: TEMP 98.1
[2020-09-09] MEDS ORDERED: cloNIDine HCL 0.1 MG TAB PO STA (14:22)
[2020-09-09 16:08] VITALS: BP 142/81; PULSE 90
== END 2020-09-09 17:07 ==
LOC: EC 10:57
DX: F41.9 Anxiety disorder, unspecified (principal); Z20.822 Contact with and (suspected) exposure to COVID-19; F17.200 Nicotine dependence, unspecified, uncomplicated
CPT/HCPCS: 99285 ×2; 82075; 36415 ×2; 80053; 84443; 85025; 80306; 81003; 87635; J2060 ×3

== ENCOUNTER 2024-03-01 02:21 | Emergency (ER) | payer OTHER ==
[2024-03-01 02:32] VITALS: TEMP 98.2
--- NOTE | 2024-03-01 02:48 | ED ---
Chest Pain HPI <Matra Villafana - Last Filed: 03/06/24 09:45> - General Source: patient, EMS Mode of arrival: EMS Limitations: no limitations - History of Present Illness MD Complaint: chest pain Onset/Timin -: hour(s) Onset: during rest Pain Location: left chest Pain Radiation: LUE Severity: moderate Quality: aching Consistency: constant Improves With: nothing Worsens With: nothing Treatments Prior to Arrival: none <RadhaJosias - Last Filed: 03/17/24 03:53> - General Chief Complaint: Chest Pain Stated Complaint: Chest Pain Time Seen by Provider: 03/01/24 02:40 - History of Present Illness Initial Comments: Patient is a 28-year-old man who presents to have evaluation for left-sided chest pain also involving the left shoulder that came on while he was trying to sleep. The patient states he also was feeling short of breath. The history limited as patient does seem intoxicated. (Josias Garcia) - Related Data Home Medications Medication Instructions Recorded Confirmed Ibuprofen [Advil] 200 - 400 mg PO Q8HR PRN 03/01/24 03/01/24 Allergies Allergy/AdvReac Type Severity Reaction Status Date / Time No Known Allergies Allergy Verified 03/01/24 10:14 Review of Systems ROS Other: All systems not noted in ROS Statement are negative. <Marta Villafana - Last Filed: 03/06/24 09:45> ROS Other: All systems not noted in ROS Statement are negative. Constitutional: Denies: fever, chills Respiratory: Denies: cough, dyspnea Cardiovascular: Reports: chest pain. Denies: palpitations, edema Gastrointestinal: Denies: abdominal pain, vomiting Genitourinary: Denies: dysuria Musculoskeletal: Denies: back pain Skin: Denies: rash Neurological: Denies: headache, weakness <RadhaJosias - Last Filed: 03/17/24 03:53> ROS Statement: Those systems with pertinent positive or pertinent negative responses have been documented in the HPI. EKG Findings - EKG Results: EKG: interpreted by ERMD, sinus rhythm (68 bpm), normal QRS, normal ST/T - Blocks, [place], Hypertrophy, ST Abn: QRS axis and voltage: indeterminate axis <Josias Garcia - Last Filed: 03/17/24 03:53> Past Medical History Past Medical History: No Reported History Additional Past Medical History / Comment(s): irregular heart beat as a child per patient History of Any Multi-Drug Resistant Organisms: None Reported Past Surgical History: Appendectomy Past Psychological History: Anxiety, Depression Smoking Status: Current every day smoker Past Alcohol Use History: Daily Past Drug Use History: Marijuana <Josias Garcia - Last Filed: 03/17/24 03:53> General Exam General appearance: appears intoxicated Head exam: Present: atraumatic, normocephalic Eye exam: Present: normal appearance. Absent: scleral icterus, conjunctival injection Neck exam: Present: normal inspection, full ROM Respiratory exam: Present: normal lung sounds bilaterally. Absent: respiratory distress, wheezes, rales, rhonchi, stridor, accessory muscle use Cardiovascular Exam: Present: regular rate, normal rhythm, normal heart sounds. Absent: systolic murmur, diastolic murmur, rubs, gallop GI/Abdominal exam: Present: soft. Absent: distended, tenderness, guarding, rebound, rigid, mass Extremities exam: Present: normal inspection, normal capillary refill. Absent: pedal edema, calf tenderness Back exam: Present: normal inspection. Absent: CVA tenderness (R), CVA tenderness (L) Neurological exam: Present: alert Skin exam: Present: warm, dry, intact, normal color. Absent: rash <Josias Garcia - Last Filed: 03/17/24 03:53> Course Vital Signs 03/01/24 03/01/24 03/01/24 02:27 02:49 03:12 Temperature 98.2 F Pulse Rate 75 75 Respiratory 25 H 18 20 Rate Blood Pressure 146/91 134/84 O2 Sat by Pulse 77 L 98 Oximetry 03/01/24 03/01/24 03/01/24 04:32 04:34 05:00 Temperature Pulse Rate 75 74 64 Respiratory 18 Rate Blood Pressure 134/81 134/81 O2 Sat by Pulse 93 L 96 97 Oximetry 03/01/24 03/01/24 03/01/24 06:09 06:15 06:46 Temperature Pulse Rate 78 65 Respiratory 18 16 Rate Blood Pressure 128/74 128/74 O2 Sat by Pulse 99 97 Oximetry 03/01/24 03/01/24 03/01/24 07:00 07:23 08:00 Temperature Pulse Rate 66 61 70 Respiratory 18 18 18 Rate Blood Pressure 128/74 125/68 125/68 O2 Sat by Pulse 97 96 97 Oximetry 03/01/24 03/01/24 03/01/24 09:00 10:00 11:00 Temperature Pulse Rate 68 66 73 Respiratory 18 18 18 Rate Blood Pressure 122/71 140/76 O2 Sat by Pulse 94 L 97 95 Oximetry 03/01/24 03/01/24 12:00 16:20 Temperature Pulse Rate 62 87 Respiratory 18 18 Rate Blood Pressure 140/80 O2 Sat by Pulse 96 98 Oximetry Chest Pain MDM <Marta Villafana - Last Filed: 03/06/24 09:45> <Josias Garcia - Last Filed: 03/17/24 03:53> - MDM Was patient admitted / discharged? Hospital course, mention meds given and route, prescriptions, significant lab abnormalities, going to OR and other pertinent info. @ -Patient signed out to me pending sobriety and EPS evaluation. Patient does become sober. Patient is not suicidal. EPS feel that the patient is stable for discharge home Undiagnosed new problem with uncertain prognosis? @ -No Drug Therapy requiring intensive monitoring for toxicity (Heparin, Nitro, Insulin, Cardizem)? @ -No Were any procedures done? @ -No Diagnosis/symptom? @ -Acute alcohol intoxication Acute, or Chronic, or Acute on Chronic? @ -Acute Uncomplicated (without systemic symptoms) or Complicated (systemic symptoms)? @ -Complicated Side effects of treatment? @ -No Exacerbation, Progression, or Severe Exacerbation? @ -No Poses a threat to life or bodily function? How? (Chest pain, [place], [place], pneumonia, PE, COPD, DKA, ARF, appy, cholecystitis, CVA, Diverticulitis, Homicidal, Suicidal, threat to staff... and all critical care pts) @ -No (BroderickMarta Alexis) The patient later gave history that he has been depressed as his uncle has cancer and is very sick. The patient states that he took 5 or 6 Percocet. The patient was not further forthcoming about whether he was having any suicidal ideation. Will hold patient to have EPS evaluation pending sobriety. Was pt. sent in by a medical professional or institution (, PA, DENTAL EQUIPMENT MECHANIC, urgent care, hospital, or usp...) When possible be specific @ -[No] Did you speak to anyone other than the patient for history (EMS, parent, family, police, friend...)? What history was obtained from this source @ -[No] Did you review nursing and triage notes (agree or disagree)? Why? @ -[I reviewed and agree with nursing and triage notes] Were old charts reviewed (outside hosp., previous admission, EMS record, old EKG, old radiological studies, urgent care reports/EKG's, usp records)? Report findings @ -[No old charts were reviewed] Differential Diagnosis (chest pain, altered mental status, abdominal pain women, abdominal pain men, vaginal bleeding, weakness, fever, dyspnea, syncope, headache, dizziness, GI bleed, back pain, seizure, CVA, palpatations, mental health, musculoskeletal)? @ -[Differential Chest Pain: Stable Angina, Unstable Angina, STEMI, NSTEMI Aortic Dissection, Pneumothorax, Musculoskeletal, Esophageal Spasm GERD, Cholecystitis, Pancreatitis, Zoster, this is not meant to be an all-inclusive list. EKG interpreted by me (3pts min.). @ -[I interpreted as above X-rays interpreted by me (1pt min.). @ -[None done] CT interpreted by me (1pt min.). @ -[None done] U/S interpreted by me (1pt. min.). @ -[None done] What testing was considered but not performed or refused? (CT, X-rays, U/S, labs)? Why? @ -[None] What meds were considered but not given or refused? Why? @ -[None] Did you discuss the management of the patient with other professionals (professionals i.e. , PA, DENTAL EQUIPMENT MECHANIC, lab, RT, psych nurse, psychiatric social worker, pipelaying fitter, teacher, chemical instrumentation officer, pillowcase turner)? Give summary @ -[No] Was smoking cessation discussed for >3mins.? @ -[No] Was critical care preformed (if so, how long)? @ -[No] Were there social determinants of health that impacted care today? How? (Homelessness, low income, unemployed, alcoholism, drug addiction, transportation, low edu. Level, literacy, decrease access to med. care, prison, rehab)? @ -[No] Was there de-escalation of care discussed even if they declined (Discuss DNR or withdrawal of care, Hospice)? DNR status @ -[No] What co-morbidities impacted this encounter? (DM, HTN, Smoking, COPD, CAD, Cancer, CVA, ARF, Chemo, Hep., AIDS, mental health diagnosis, sleep apnea, morbid obesity)? @ -[None] Was patient admitted / discharged? Hospital course, mention meds given and route, prescriptions, significant lab abnormalities, going to OR and other pertinent info. @ -[Patient was pending EPS evaluation at the time of shift change. He had initially presented with complaint of chest pain and then had discussed feeling depressed and taking extra doses of medication therefore being held to have psychiatric clearance. (Josias Garcia) Disposition Is patient prescribed a controlled substance at d/c from ED?: No Time of Disposition: 16:21 <Marta Villafana - Last Filed: 03/06/24 09:45> <Josias Garcia - Last Filed: 03/17/24 03:53> Clinical Impression: Alcohol intoxication Disposition: HOME SELF-CARE Condition: Stable Instructions (If sedation given, give patient instructions): Alcohol Intoxication (ED) Referrals: Lisa Montenegro MD [REFERRING] - 1-2 days Heber José MD [STAFF PHYSICIAN] - 1-2 days Lisa Malhotra NPC [Nurse Practitioner] - 1-2 days Jarred Antonio MD [STAFF PHYSICIAN] - 1-2 days
[2024-03-01] MEDS: NALOXONE 0.4 MG/ML 1 ML VIAL IVP STA ×2 (02:49→06:09)
[2024-03-01 02:58] LABS: Basophils # (A) 0.2 k/uL (0-0.2); Basophils % (A) 2 %; Eosinophils # (A) 0.7 k/uL (0-0.7); Eosinophils % (A) 6 %; HCT 45.6 % (39.0-53.0); HGB 14.7 gm/dL (13.0-17.5); Lymphocytes # (A) 4.4 k/uL (1.0-4.8); Lymphocytes % (A) 36 %; MCH 32.4 pg (25.0-35.0); MCHC 32.4 g/dL (31.0-37.0); MCV 100.1 fL (80.0-100.0); Mean Platelet Volume 7.3; Monocytes # (A) 0.7 k/uL (0-1.0); Monocytes % (A) 5 %; Neutrophils # (A) 5.8 k/uL (1.3-7.7); Neutrophils % (A) 48 %; Platelet Count 267 k/uL (150-450); RBC 4.55 m/uL (4.30-5.90); RDW 12.7 % (11.5-15.5); WBC 12.1 k/uL (3.8-10.6)
[2024-03-01 03:16] LABS: ALT 87 U/L (4-49); AST 66 U/L (17-59); African American GFR (CKD) >90 (>60 ml/min/1.73 sqM); Albumin 4.7 g/dL (3.5-5.0); Alkaline Phosphatase 49 U/L (38-126); Amylase 43 U/L (30-110); Anion Gap 10 mmol/L; Blood Urea Nitrogen 7 mg/dL (9-20); Calcium 8.8 mg/dL (8.4-10.2); Carbon Dioxide 26 mmol/L (22-30); Chloride 102 mmol/L (98-107); Glucose 119 mg/dL (74-99); Lipase 90 U/L (23-300); Magnesium 2.1 mg/dL (1.6-2.3); Non-African American GFR(CKD) >90 (>60 ml/min/1.73 sqM); Partial Thromboplastin Time 25.4 sec (22.0-30.0); Potassium 3.5 mmol/L (3.5-5.1); Prothrombin Time 10.6 sec (10.0-12.5); Sodium 138 mmol/L (137-145); Total Bilirubin 0.5 mg/dL (0.2-1.3); Total Protein 7.6 g/dL (6.3-8.2)
[2024-03-01] MEDS: ASPIRIN 81 MG PO STA (03:17)
[2024-03-01 03:18] LABS: Alcohol 224 mg/dL
--- NOTE | 2024-03-01 04:54 | XR ---
EXAMINATION TYPE: XR chest 1V portable DATE OF EXAM: 03/01/2024 COMPARISON: NONE HISTORY: Chest pain TECHNIQUE: Single frontal view of the chest is obtained. FINDINGS: Low lung volumes are seen. There is no focal air space opacity, pleural effusion, or pneum othorax seen. The cardiac silhouette size is upper limits of normal. The osseous structures are in tact. IMPRESSION: Low lung volumes without suspicious acute pulmonary infiltrate.
[2024-03-01 07:26] VITALS: RESP 18
[2024-03-01] MEDS: ONDANSETRON 4 MG/2 ML VIAL IVP STA (09:15)
[2024-03-01] MEDS: PROMETHAZINE 25 MG TAB PO STA (14:26)
[2024-03-01 16:20] VITALS: BP 140/80; PULSE 87
== END 2024-03-01 16:26 | disposition home or self-care (01) ==
LOC: EC 02:21
DX: F10.129 Alcohol abuse with intoxication, unspecified (principal); F17.200 Nicotine dependence, unspecified, uncomplicated; Y90.7 Blood alcohol level of 200-239 mg/100 ml
CPT/HCPCS: 82075; 36415; 93005; 85379; 80053; 82150; 83690; 83735; 84484; 85025; 85610; 85730; 80143; 71045; 99285; 96374; 96375; 96376; G0480; J2310; J2405; 80320

== ENCOUNTER 2024-03-21 00:11 | Emergency (ER) | payer OTHER ==
[2024-03-21] MEDS: PANTOPRAZOLE 40 MG/10 ML VIAL IVP STA (00:39)
[2024-03-21] MEDS: SODIUM CHLORIDE 0.9% 2,000 ML IV STA (00:40)
[2024-03-21] MEDS: METOCLOPRAMIDE 5 MG/ML 2 ML VIAL IVP STA (00:40)
--- NOTE | 2024-03-21 00:41 | ED ---
Alcohol HPI - General Chief Complaint: Alcohol Stated Complaint: vomiting blood Time Seen by Provider: 03/21/24 00:19 Source: patient, EMS, RN notes reviewed Mode of arrival: EMS Limitations: no limitations - History of Present Illness Initial Comments: 28-year-old male presents emergency department via EMS chief complaint of alcohol intoxication, vomiting. Patient states that he has been drinking for several hours tonight he states that he started having upset stomach states he attempted to vomit states he was dry heaving states shortly after he did not have an few episodes of emesis in which he states there was some blood within his emesis. Patient states he has epigastric discomfort. Denies any chest pain no back pain he states he does drink alcohol on a regular basis. Denies any fevers or chills no change in bowel habits no dysuria. Patient did receive Zofran by EMS which has helped. - Related Data Home Medications Medication Instructions Recorded Confirmed Ibuprofen [Advil] 200 - 400 mg PO Q8HR PRN 03/01/24 03/01/24 Previous Rx's Medication Instructions Recorded Omeprazole [PriLOSEC] 40 mg PO DAILY #14 cap 03/21/24 Ondansetron Odt [Zofran Odt] 4 mg PO Q8HR PRN #10 tab 03/21/24 Allergies Allergy/AdvReac Type Severity Reaction Status Date / Time No Known Allergies Allergy Verified 03/21/24 00:16 Review of Systems ROS Statement: Those systems with pertinent positive or pertinent negative responses have been documented in the HPI. ROS Other: All systems not noted in ROS Statement are negative. Past Medical History Past Medical History: No Reported History Additional Past Medical History / Comment(s): irregular heart beat as a child per patient History of Any Multi-Drug Resistant Organisms: None Reported Past Surgical History: Appendectomy Past Psychological History: Anxiety, Depression Smoking Status: Current every day smoker Past Alcohol Use History: Daily Past Drug Use History: Marijuana General Exam Limitations: no limitations General appearance: alert, in no apparent distress Head exam: Present: atraumatic, normocephalic, normal inspection Neck exam: Present: normal inspection. Absent: tenderness, meningismus, lymphadenopathy Respiratory exam: Present: normal lung sounds bilaterally. Absent: respiratory distress, wheezes, rales, rhonchi, stridor Cardiovascular Exam: Present: regular rate, normal rhythm, normal heart sounds. Absent: systolic murmur, diastolic murmur, rubs, gallop, clicks GI/Abdominal exam: Present: soft, tenderness, normal bowel sounds. Absent: distended, guarding, rebound, rigid Back exam: Absent: CVA tenderness (R), CVA tenderness (L) Neurological exam: Present: alert Course Vital Signs 03/21/24 00:12 Temperature 98.0 F Pulse Rate 74 Respiratory 20 Rate Blood Pressure 140/74 O2 Sat by Pulse 97 Oximetry Medical Decision Making - Medical Decision Making Was pt. sent in by a medical professional or institution (, PA, SENIOR DIRECTOR INSIGHT, urgent care, hospital, or group home...) When possible be specific @ -No Did you speak to anyone other than the patient for history (EMS, parent, family, police, friend...)? What history was obtained from this source @ -No Did you review nursing and triage notes (agree or disagree)? Why? @ -I reviewed and agree with nursing and triage notes Were old charts reviewed (outside hosp., previous admission, EMS record, old EKG, old radiological studies, urgent care reports/EKG's, group home records)? Report findings @ -No old charts were reviewed Differential Diagnosis (chest pain, altered mental status, abdominal pain women, abdominal pain men, vaginal bleeding, weakness, fever, dyspnea, syncope, headache, dizziness, GI bleed, back pain, seizure, CVA, palpatations, mental health, musculoskeletal)? @ -Differential Abdominal Pain Men: Appendicitis, cholecystitis, diverticulosis, ischemic bowel, pancreatitis, hepatitis, UTI, gastroenteritis, AAA, incarcerated hernia, bowel obstruction, constipation, inflammatory bowel, hepatitis, peptic ulcer disease, splenic infarction, perforated viscus, testicular torsion, this is not meant to be an all-inclusive list EKG interpreted by me (3pts min.). @ -[None X-rays interpreted by me (1pt min.). @ -None done CT interpreted by me (1pt min.). @ -None done U/S interpreted by me (1pt. min.). @ -None done What testing was considered but not performed or refused? (CT, X-rays, U/S, labs)? Why? @ -None What meds were considered but not given or refused? Why? @ -None Did you discuss the management of the patient with other professionals (pr ofessionals i.e. , PA, SENIOR DIRECTOR INSIGHT, lab, RT, psych nurse, social worker masters, sterile processing manager, teacher, unemployment insurance hearing officer, block and case maker)? Give summary @ -No Was smoking cessation discussed for >3mins.? @ -No Was critical care preformed (if so, how long)? @ -No Were there social determinants of health that impacted care today? How? (Homelessness, low income, unemployed, alcoholism, drug addiction, transportation, low edu. Level, literacy, decrease access to med. care, usp, rehab)? @ -No Was there de-escalation of care discussed even if they declined (Discuss DNR or withdrawal of care, Hospice)? DNR status @ -No What co-morbidities impacted this encounter? (DM, HTN, Smoking, COPD, CAD, Cancer, CVA, ARF, Chemo, Hep., AIDS, mental health diagnosis, sleep apnea, morbid obesity)? @ -Alcohol abuse Was patient admitted / discharged? Hospital course, mention meds given and route, prescriptions, significant lab abnormalities, going to OR and other pertinent info. @ -Discharge patient laboratory show evidence of acute alcohol intoxication, remaining CBC and comp essentially within normal limits. Patient feels improved at this time. Patient symptoms may be related underlying gastritis, [place]- [place]. Patient we discharged on Protonix, antiemetics vies to follow-up for alcohol rehab. Undiagnosed new problem with uncertain prognosis? @ -No Drug Therapy requiring intensive monitoring for toxicity (Heparin, Nitro, Insulin, Cardizem)? @ -No Were any procedures done? @ -No Diagnosis/symptom? @ -Nausea vomiting, alcohol intoxication, gastritis Acute, or Chronic, or Acute on Chronic? @ -Acute Uncomplicated (without systemic symptoms) or Complicated (systemic symptoms)? @ -Uncomplicated Side effects of treatment? @ -No Exacerbation, Progression, or Severe Exacerbation? @ -No Poses a threat to life or bodily function? How? (Chest pain, [place], [place], pneumonia, PE, COPD, DKA, ARF, appy, cholecystitis, CVA, Diverticulitis, Homicidal, Suicidal, threat to staff... and all critical care pts) @ -No - Lab Data Result diagrams: 03/21/24 00:42 03/21/24 00:42 Lab Results 03/21/24 03/21/24 Range/Units 00:42 00:42 WBC 7.7 (3.8-10.6) k/uL RBC 4.43 (4.30-5.90) m/uL Hgb 14.7 (13.0-17.5) gm/dL Hct 44.2 (39.0-53.0) % MCV 99.7 (80.0-100.0) fL MCH 33.3 (25.0-35.0) pg MCHC 33.4 (31.0-37.0) g/dL RDW 12.2 (11.5-15.5) % Plt Count 324 (150-450) k/uL MPV 7.0 Neutrophils % 50 % Lymphocytes % 34 % Monocytes % 5 % Eosinophils % 8 % Basophils % 1 % Neutrophils # 3.8 (1.3-7.7) k/uL Lymphocytes # 2.6 (1.0-4.8) k/uL Monocytes # 0.4 (0-1.0) k/uL Eosinophils # 0.6 (0-0.7) k/uL Basophils # 0.1 (0-0.2) k/uL Sodium 139 (137-145) mmol/L Potassium 4.6 (3.5-5.1) mmol/L Chloride 107 (98-107) mmol/L Carbon Dioxide 20 L (22-30) mmol/L Anion Gap 12 mmol/L BUN 5 L (9-20) mg/dL Creatinine 0.50 L (0.66-1.25) mg/dL Est GFR (CKD-EPI)AfAm >90 (>60 ml/min/1.73 sqM) Est GFR (CKD-EPI)NonAf >90 (>60 ml/min/1.73 sqM) Glucose 93 (74-99) mg/dL Calcium 8.8 (8.4-10.2) mg/dL Total Bilirubin 0.7 (0.2-1.3) mg/dL AST 59 (17-59) U/L ALT 76 H (4-49) U/L Alkaline Phosphatase 38 (38-126) U/L Total Protein 7.5 (6.3-8.2) g/dL Albumin 4.6 (3.5-5.0) g/dL Lipase 54 (23-300) U/L Serum Alcohol 154 mg/dL Disposition Clinical Impression: Alcohol intoxication, Gastritis, Nausea & vomiting Disposition: HOME SELF-CARE Condition: Stable Instructions (If sedation given, give patient instructions): Gastritis (ED) Additional Instructions: Please return to the Emergency Department if symptoms worsen or any other concerns. Prescriptions: Omeprazole [PriLOSEC] 40 mg PO DAILY #14 cap Ondansetron Odt [Zofran Odt] 4 mg PO Q8HR PRN #10 tab PRN Reason: Nausea Is patient prescribed a controlled substance at d/c from ED?: No Referrals: None,Stated [Primary Care Provider] - 1-2 days Jelena Mccann MD [STAFF PHYSICIAN] - 1-2 days Time of Disposition: 01:32
[2024-03-21 00:52] LABS: Basophils # (A) 0.1 k/uL (0-0.2); Basophils % (A) 1 %; Eosinophils # (A) 0.6 k/uL (0-0.7); Eosinophils % (A) 8 %; HCT 44.2 % (39.0-53.0); HGB 14.7 gm/dL (13.0-17.5); Lymphocytes # (A) 2.6 k/uL (1.0-4.8); Lymphocytes % (A) 34 %; MCH 33.3 pg (25.0-35.0); MCHC 33.4 g/dL (31.0-37.0); MCV 99.7 fL (80.0-100.0); Monocytes # (A) 0.4 k/uL (0-1.0); Monocytes % (A) 5 %; Neutrophils # (A) 3.8 k/uL (1.3-7.7); Neutrophils % (A) 50 %; Platelet Count 324 k/uL (150-450); RBC 4.43 m/uL (4.30-5.90); RDW 12.2 % (11.5-15.5); WBC 7.7 k/uL (3.8-10.6)
[2024-03-21 01:09] LABS: ALT 76 U/L (4-49); AST 59 U/L (17-59); African American GFR (CKD) >90 (>60 ml/min/1.73 sqM); Albumin 4.6 g/dL (3.5-5.0); Alkaline Phosphatase 38 U/L (38-126); Anion Gap 12 mmol/L; Blood Urea Nitrogen 5 mg/dL (9-20); Calcium 8.8 mg/dL (8.4-10.2); Carbon Dioxide 20 mmol/L (22-30); Chloride 107 mmol/L (98-107); Glucose 93 mg/dL (74-99); Lipase 54 U/L (23-300); Non-African American GFR(CKD) >90 (>60 ml/min/1.73 sqM); Sodium 139 mmol/L (137-145); Total Bilirubin 0.7 mg/dL (0.2-1.3); Total Protein 7.5 g/dL (6.3-8.2)
[2024-03-21 01:22] LABS: Alcohol 154 mg/dL; Potassium 4.6 mmol/L (3.5-5.1)
[2024-03-21 01:48] VITALS: BP 132/89; PULSE 79; RESP 18; TEMP 98
== END 2024-03-21 01:48 | disposition home or self-care (01) ==
LOC: EC 00:11
DX: F10.129 Alcohol abuse with intoxication, unspecified (principal); K29.70 Gastritis, unspecified, without bleeding; F17.200 Nicotine dependence, unspecified, uncomplicated; Y90.6 Blood alcohol level of 120-199 mg/100 ml
CPT/HCPCS: 36415; 80053; 83690; 85025; 99284; 96374; 96375; 96361; G0480; J2765; J2470; 80320

== ENCOUNTER 2024-03-24 03:33 | Emergency (ER) | payer OTHER ==
[2024-03-24] MEDS ORDERED: SODIUM CHLORIDE 0.9% 1,000 ML IV STA (03:42)
--- NOTE | 2024-03-24 03:42 | ED ---
Alcohol HPI - General Stated Complaint: GI bleed Time Seen by Provider: 03/24/24 03:40 Source: RN notes reviewed, old records reviewed Limitations: no limitations - History of Present Illness Initial Comments: This is a 28-year-old male for alcohol intoxication chest pain palpitations shortness of breath heart skipping a beat not feeling well Complaint: alcohol intoxication Last Drink: just [employer] -: minute(s) Previous Visits for Alcohol Intoxication?: Yes Recent Trauma: Yes Treatments Prior to Arrival: none Chronic Alcohol Use: Yes - Related Data Home Medications Medication Instructions Recorded Confirmed Ibuprofen [Advil] 200 - 400 mg PO Q8HR PRN 03/01/24 03/01/24 Previous Rx's Medication Instructions Recorded Omeprazole [PriLOSEC] 40 mg PO DAILY #14 cap 03/21/24 Ondansetron Odt [Zofran Odt] 4 mg PO Q8HR PRN #10 tab 03/21/24 Allergies Allergy/AdvReac Type Severity Reaction Status Date / Time No Known Allergies Allergy Verified 03/24/24 04:55 Review of Systems ROS Statement: Those systems with pertinent positive or pertinent negative responses have been documented in the HPI. ROS Other: All systems not noted in ROS Statement are negative. Past Medical History Past Medical History: No Reported History Additional Past Medical History / Comment(s): irregular heart beat as a child per patient History of Any Multi-Drug Resistant Organisms: None Reported Past Surgical History: Appendectomy Past Psychological History: Anxiety, Depression Smoking Status: Current every day smoker Past Alcohol Use History: Daily Past Drug Use History: Marijuana General Exam General appearance: alert, in no apparent distress Head exam: Present: atraumatic, normocephalic, normal inspection Eye exam: Present: normal appearance, PERRL, EOMI. Absent: scleral icterus, conjunctival injection, periorbital swelling ENT exam: Present: normal exam, mucous membranes moist Neck exam: Present: normal inspection. Absent: tenderness, meningismus, lymphadenopathy Respiratory exam: Present: normal lung sounds bilaterally. Absent: respiratory distress, wheezes, rales, rhonchi, stridor Cardiovascular Exam: Present: regular rate, normal rhythm, normal heart sounds. Absent: systolic murmur, diastolic murmur, rubs, gallop, clicks GI/Abdominal exam: Present: soft, normal bowel sounds. Absent: distended, tenderness, guarding, rebound, rigid Extremities exam: Present: normal inspection, full ROM, normal capillary refill. Absent: tenderness, pedal edema, joint swelling, calf tenderness Back exam: Present: normal inspection Neurological exam: Present: alert, oriented X3, CN II-XII intact Psychiatric exam: Present: normal affect, normal mood Skin exam: Present: warm, dry, intact, normal color. Absent: rash Course Vital Signs 03/24/24 03/24/24 03/24/24 04:50 04:55 05:53 Temperature 97.4 F L Pulse Rate 63 60 68 Respiratory 22 20 20 Rate Blood Pressure 146/91 146/98 150/97 O2 Sat by Pulse 96 95 97 Oximetry 03/24/24 03/24/24 06:00 06:40 Temperature Pulse Rate 74 67 Respiratory 16 16 Rate Blood Pressure 152/87 152/82 O2 Sat by Pulse 96 99 Oximetry - Reevaluation(s) Reevaluation #1: 03/24/24 06:37 Records reviewed Reevaluation #2: 03/24/24 06:37 Patient is s very unhappy with his symptoms and how he is feeling and being told that everything is normal Reevaluation #3: 03/24/24 06:37 Patient informed of results and questions answered Reevaluation #4: Was pt. sent in by a medical professional or institution (, PA, DOCTOR OF CHIROPRACTIC, urgent care, hospital, or detention...) When possible be specific @ -no Did you speak to anyone other than the patient for history (EMS, parent, family, police, friend...)? What history was obtained from this source @ -no Did you review nursing and triage notes (agree or disagree)? Why? @ -agree Are old charts reviewed (outside hosp., previous admission, EMS record, old EKG, old radiological studies, urgent care reports/EKG's, detention records)? Report findings @ -yes Differential Diagnosis (chest pain, altered mental status, abdominal pain women, abdominal pain men, vaginal bleeding, weakness, fever, dyspnea, syncope, head ache, dizziness, GI bleed, back pain, seizure, CVA, palpatations, mental health, musculoskeletal)? @ -prior EKG interpreted by me (3pts min.). @ -yes X-rays interpreted by me (1pt min.). @ -yes negative for acute disease CT interpreted by me (1pt min.). @ -no U/S interpreted by me (1pt. min.). @ -no What testing was considered but not performed or refused? (CT, X-rays, U/S, labs)? Why? @ -none What meds were considered but not given or refused? Why? @ -none Did you discuss the management of the patient with other professionals (professionals i.e. DrLogan, PA, DOCTOR OF CHIROPRACTIC, lab, RT, psych nurse, health social work professor, toxicologist, teacher, police patrol officer, showcase trimmer)? Give summary @ -no Was smoking cessation discussed for >3mins.? @ -no Was critical care preformed (if so, how long)? @ -no Were there social determinants of health that impacted care today? How? (Homelessness, low income, unemployed, alcoholism, drug addiction, transportation, low edu. Level, literacy, decrease access to med. care, long term, rehab)? @ -none Was there de-escalation of care discussed even if they declined (Discuss DNR or withdrawal of care, Hospice)? DNR status @ -no What co-morbidities impacted this encounter? (DM, HTN, Smoking, COPD, CAD, Cancer, CVA, ARF, Chemo, Hep., AIDS, mental health diagnosis, sleep apnea, mor bid obesity)? @ -none Was patient admitted / discharged? Hospital course, mention meds given and ro wainwright, prescriptions, significant lab abnormalities, going to OR and other pertinent info. @ -28 male to the ER for evaluation of multiple complaints changing complaints for complaints of chest pain here in the ER, no acute findings and patient can be discharged home Discharged Undiagnosed new problem with uncertain prognosis? @ -no Drug Therapy requiring intensive monitoring for toxicity (Heparin, Nitro, Insulin, Cardizem)? @ -no Were any procedures done? @ -no Diagnosis/symptom? @ -Chest pain Acute, or Chronic, or Acute on Chronic? @ -Acute Uncomplicated (without systemic symptoms) or Complicated (systemic symptoms)? @ -Complicated Side effects of treatment? @ -no Exacerbation, Progression, or Severe Exacerbation? @ -exacerbation Poses a threat to life or bodily function? How? (Chest pain, [place], PR, pneumonia, PE, COPD, DKA, ARF, appy, cholecystitis, CVA, Diverticulitis, Homicidal, Suicidal, threat to staff... and all critical care pts) @ -yes cp Reevaluation #5: Differential Palpitations Ventricular arrhythmias, atrial arrhythmias, myocardial infarction, anemia, thyrotoxicosis, electrolyte imbalance, hypokalemia, pulmonary embolism, pulmonary disease, drugs, alcohol, anxiety, stress.... This is not meant to be an all-inclusive list. Medical Decision Making - Medical Decision Making 28 male to ER for evaluation of multiple different complaints and complaint changes throughout ER stay. Patient is very unhappy here in the emergency department and was unhappy on arrival, at this time is perfect preferring discharge - Lab Data Result diagrams: 03/24/24 03:34 03/24/24 05:45 Lab Results 03/24/24 03/24/24 03/24/24 Range/Units 03:34 03:34 05:45 WBC 7.9 (3.8-10.6) k/uL RBC 4.50 (4.30-5.90) m/uL Hgb 14.6 (13.0-17.5) gm/dL Hct 43.4 (39.0-53.0) % MCV 96.4 (80.0-100.0) fL MCH 32.5 (25.0-35.0) pg MCHC 33.7 (31.0-37.0) g/dL RDW 12.1 (11.5-15.5) % Plt Count 341 (150-450) k/uL MPV 6.7 Neutrophils % 49 % Lymphocytes % 35 % Monocytes % 6 % Eosinophils % 8 % Basophils % 1 % Neutrophils # 3.9 (1.3-7.7) k/uL Lymphocytes # 2.8 (1.0-4.8) k/uL Monocytes # 0.4 (0-1.0) k/uL Eosinophils # 0.6 (0-0.7) k/uL Basophils # 0.1 (0-0.2) k/uL Sodium 137 (137-145) mmol/L Potassium 3.8 (3.5-5.1) mmol/L Chloride 103 (98-107) mmol/L Carbon Dioxide 24 (22-30) mmol/L Anion Gap 10 mmol/L BUN 4 L (9-20) mg/dL Creatinine 0.46 L (0.66-1.25) mg/dL Est GFR (CKD-EPI)AfAm >90 (>60 ml/min/1.73 sqM) Est GFR (CKD-EPI)NonAf >90 (>60 ml/min/1.73 sqM) Glucose 98 (74-99) mg/dL Calcium 9.2 (8.4-10.2) mg/dL Phosphorus 4.3 (2.5-4.5) mg/dL Magnesium 1.9 (1.6-2.3) mg/dL Total Bilirubin 0.6 (0.2-1.3) mg/dL AST 45 (17-59) U/L ALT 64 H (4-49) U/L Alkaline Phosphatase 54 (38-126) U/L Total Protein 7.2 (6.3-8.2) g/dL Albumin 4.5 (3.5-5.0) g/dL Lipase 64 (23-300) U/L Urine Color Colorless Urine Appearance Clear (Clear) Urine pH 6.0 (5.0-8.0) Ur Specific [place] 1.001 (1.001-1.035) Urine Protein Negative (Negative) Urine Glucose (UA) Negative (Negative) Urine Ketones Negative (Negative) Urine Blood Negative (Negative) Urine Nitrite Negative (Negative) Urine Bilirubin Negative (Negative) Urine Urobilinogen <2.0 (<2.0) mg/dL Ur Leukocyte Esterase Negative (Negative) Urine Opiates Screen Not Detected (NotDetected) Ur Oxycodone Screen Not Detected (NotDetected) Urine Methadone Screen Not Detected (NotDetected) Ur Barbiturates Screen Not Detected (NotDetected) U Tricyclic Antidepress Not Detected (NotDetected) Ur Phencyclidine Scrn Not Detected (NotDetected) Ur Amphetamines Screen Not Detected (NotDetected) U Methamphetamines Scrn Not Detected (NotDetected) U Benzodiazepines Scrn Detected H (NotDetected) Urine Cocaine Screen Not Detected (NotDetected) U Marijuana (THC) Screen Detected H (NotDetected) Serum Alcohol 26 mg/dL - EKG Data -: EKG Interpreted by Me (EKG is sinus 62 MO 157 QRS 110 QTc 435) Disposition Clinical Impression: Nausea & vomiting, Gastritis, Palpitations, Alcohol intoxication Disposition: HOME SELF-CARE Condition: Fair Instructions (If sedation given, give patient instructions): Heart Palpitations (ED) Is patient prescribed a controlled substance at d/c from ED?: No Referrals: None,Stated [Primary Care Provider] - 1-2 days Time of Disposition: 06:30
[2024-03-24 04:07] LABS: Basophils # (A) 0.1 k/uL (0-0.2); Basophils % (A) 1 %; Eosinophils # (A) 0.6 k/uL (0-0.7); Eosinophils % (A) 8 %; HCT 43.4 % (39.0-53.0); HGB 14.6 gm/dL (13.0-17.5); Lymphocytes # (A) 2.8 k/uL (1.0-4.8); Lymphocytes % (A) 35 %; MCH 32.5 pg (25.0-35.0); MCHC 33.7 g/dL (31.0-37.0); MCV 96.4 fL (80.0-100.0); Mean Platelet Volume 6.7; Monocytes # (A) 0.4 k/uL (0-1.0); Monocytes % (A) 6 %; Neutrophils # (A) 3.9 k/uL (1.3-7.7); Neutrophils % (A) 49 %; Platelet Count 341 k/uL (150-450); RDW 12.1 % (11.5-15.5); WBC 7.9 k/uL (3.8-10.6)
[2024-03-24 04:08] LABS: Appearance,Urine Clear (Clear); Bilirubin,Urine Negative (Negative); Blood,Urine Negative (Negative); Color,Urine Colorless; Glucose,Urine (UA) Negative (Negative); Ketones,Urine Negative (Negative); Leukocyte Esterase,Urine Negative (Negative); Nitrite,Urine Negative (Negative); Protein,Urine Negative (Negative); Specific Gravity,Urine 1.001 (1.001-1.035); Urobilinogen,Urine <2.0 mg/dL (<2.0)
[2024-03-24 04:28] LABS: Amphetamine Screen,Urine Not Detected (NotDetected); Barbiturate Screen,Urine Not Detected (NotDetected); Benzodiazepines Screen,Urine Detected (NotDetected); Cocaine Screen,Urine Not Detected (NotDetected); Methadone Screen, Urine Not Detected (NotDetected); Opiate Screen,Urine Not Detected (NotDetected); Oxycodone Screen, Urine Not Detected (NotDetected); Phencyclidine Screen,Urine Not Detected (NotDetected); Tricyclic Antidepressant,Urine Not Detected (NotDetected); Urn Cannabinoid Scrn Detected (NotDetected)
[2024-03-24 04:55] VITALS: TEMP 97.4
--- NOTE | 2024-03-24 05:24 | XR ---
EXAMINATION TYPE: XR chest 1V portable DATE OF EXAM: 03/24/2024 COMPARISON: Prior chest x-ray March 01, 2024 HISTORY: Shortness of breath TECHNIQUE: Single frontal view of the chest is obtained. FINDINGS: Low lung volumes and mild cardiomegaly redemonstrated. There is no suspicious new periphera l focal air space opacity, pleural effusion, or pneumothorax seen. The osseous structures are intac t. IMPRESSION: No new acute pulmonary process.
[2024-03-24] MEDS: ONDANSETRON 4 MG/2 ML VIAL IVP STA (05:53)
[2024-03-24 06:16] VITALS: RESP 16
[2024-03-24 06:40] VITALS: BP 152/82; PULSE 67
[2024-03-24 06:44] LABS: ALT 64 U/L (4-49); AST 45 U/L (17-59); African American GFR (CKD) >90 (>60 ml/min/1.73 sqM); Albumin 4.5 g/dL (3.5-5.0); Alcohol 26 mg/dL; Alkaline Phosphatase 54 U/L (38-126); Anion Gap 10 mmol/L; Blood Urea Nitrogen 4 mg/dL (9-20); Calcium 9.2 mg/dL (8.4-10.2); Carbon Dioxide 24 mmol/L (22-30); Chloride 103 mmol/L (98-107); Glucose 98 mg/dL (74-99); Lipase 64 U/L (23-300); Magnesium 1.9 mg/dL (1.6-2.3); Non-African American GFR(CKD) >90 (>60 ml/min/1.73 sqM); Phosphorus 4.3 mg/dL (2.5-4.5); Potassium 3.8 mmol/L (3.5-5.1); Sodium 137 mmol/L (137-145); Total Bilirubin 0.6 mg/dL (0.2-1.3); Total Protein 7.2 g/dL (6.3-8.2)
== END 2024-03-24 06:41 | disposition home or self-care (01) ==
LOC: EC 03:33
DX: K29.70 Gastritis, unspecified, without bleeding (principal); R00.2 Palpitations; F10.129 Alcohol abuse with intoxication, unspecified; F17.200 Nicotine dependence, unspecified, uncomplicated; Y90.1 Blood alcohol level of 20-39 mg/100 ml
CPT/HCPCS: 99285 ×2; 36415; 93005; 80053; 83690; 83735; 84100; 85025; 81003; 80306; 71045; G0480; 80320

== ENCOUNTER 2024-03-31 00:47 | Emergency (ER) | payer OTHER ==
[2024-03-31 01:01] VITALS: TEMP 98.2
[2024-03-31 01:42] LABS: Basophils # (A) 0.1 k/uL (0-0.2); Basophils % (A) 1 %; Eosinophils # (A) 0.6 k/uL (0-0.7); Eosinophils % (A) 6 %; HCT 45.5 % (39.0-53.0); HGB 15.5 gm/dL (13.0-17.5); Lymphocytes # (A) 3.1 k/uL (1.0-4.8); Lymphocytes % (A) 32 %; MCH 33.5 pg (25.0-35.0); MCV 98.6 fL (80.0-100.0); Mean Platelet Volume 7.4; Monocytes # (A) 0.5 k/uL (0-1.0); Monocytes % (A) 6 %; Neutrophils % (A) 53 %; Platelet Count 309 k/uL (150-450); RBC 4.61 m/uL (4.30-5.90); WBC 9.5 k/uL (3.8-10.6)
[2024-03-31 02:03] LABS: ALT 59 U/L (4-49); AST 47 U/L (17-59); Acetaminophen <10.0 ug/mL; African American GFR (CKD) >90 (>60 ml/min/1.73 sqM); Albumin 4.6 g/dL (3.5-5.0); Alkaline Phosphatase 43 U/L (38-126); Anion Gap 10 mmol/L; Blood Urea Nitrogen 8 mg/dL (9-20); Calcium 9.1 mg/dL (8.4-10.2); Carbon Dioxide 26 mmol/L (22-30); Chloride 106 mmol/L (98-107); Glucose 110 mg/dL (74-99); Non-African American GFR(CKD) >90 (>60 ml/min/1.73 sqM); Potassium 4.1 mmol/L (3.5-5.1); Salicylate <1.0 mg/dL; Sodium 142 mmol/L (137-145); Total Bilirubin 0.5 mg/dL (0.2-1.3); Total Protein 7.5 g/dL (6.3-8.2)
[2024-03-31 02:43] LABS: Alcohol 172 mg/dL
--- NOTE | 2024-03-31 03:16 | ED ---
Overdose HPI - General Source: patient, EMS Limitations: no limitations - History of Present Illness MD Complaint: other <Josias Garcia - Last Filed: 03/31/24 03:31> <Jd Hernandez - Last Filed: 03/31/24 10:33> - General Chief Complaint: Overdose Stated Complaint: Petition Time Seen by Provider: 03/31/24 01:08 - History of Present Illness Initial Comments: This patient is a 28-year-old man here to have evaluation after drinking too much and taking Xanax. The patient states that he was upset because his uncle . Patient relates that his mother is in the hospital. He was feeling stressed so he drank he states fifth of alcohol plus beers. Patient states that he took tablets of Xanax and also smoked marijuana. The patient now feeling very sleepy. (Josias Garcia) - Related Data Home Medications Medication Instructions Recorded Confirmed Ibuprofen [Advil] 200 - 400 mg PO Q8HR PRN 03/01/24 03/01/24 Previous Rx's Medication Instructions Recorded Omeprazole [PriLOSEC] 40 mg PO DAILY #14 cap 03/21/24 Ondansetron Odt [Zofran Odt] 4 mg PO Q8HR PRN #10 tab 03/21/24 Allergies Allergy/AdvReac Type Severity Reaction Status Date / Time No Known Allergies Allergy Verified 03/24/24 04:55 Review of Systems ROS Other: All systems not noted in ROS Statement are negative. <Josias Garcia - Last Filed: 03/31/24 03:31> ROS Other: All systems not noted in ROS Statement are negative. <Jd Hernandez - Last Filed: 03/31/24 10:33> ROS Statement: Those systems with pertinent positive or pertinent negative responses have been documented in the HPI. Past Medical History Past Medical History: No Reported History Additional Past Medical History / Comment(s): irregular heart beat as a child per patient History of Any Multi-Drug Resistant Organisms: None Reported Past Surgical History: Appendectomy Past Psychological History: Anxiety, Depression Smoking Status: Current every day smoker Past Alcohol Use History: Daily Past Drug Use History: Marijuana <Josias Garcia - Last Filed: 03/31/24 03:31> General Exam Limitations: no limitations <Josias Garcia - Last Filed: 03/31/24 03:31> Course Vital Signs 03/31/24 03/31/24 03/31/24 00:50 01:00 01:30 Temperature 98.2 F Pulse Rate 101 H 100 98 Respiratory 16 15 14 Rate Blood Pressure 132/82 135/83 133/73 O2 Sat by Pulse 93 L 93 L 90 L Oximetry 03/31/24 03/31/24 03/31/24 02:00 04:02 09:00 Temperature Pulse Rate 81 82 68 Respiratory 14 18 16 Rate Blood Pressure 101/62 117/66 150/88 O2 Sat by Pulse 96 95 98 Oximetry Medical Decision Making - Lab Data Result diagrams: 03/31/24 01:15 03/31/24 01:15 - EKG Data -: EKG Interpreted by Mo EKG shows normal: sinus rhythm, axis (Left axis deviation), intervals (Normal) Rate: normal (89 bpm) Interpretation: other (Pulmonary disease pattern) <Josias Garcia - Last Filed: 03/31/24 03:31> - Lab Data Result diagrams: 03/31/24 01:15 03/31/24 01:15 <Jd Hernandez - Last Filed: 03/31/24 10:33> - Medical Decision Making Patient was pending psychiatric evaluation. Apparently also attempted overdose on Xanax. Has a history of polysubstance abuse.Medically cleared by previous provider upon sobriety. When patient was sober, was evaluated by mobile crisis unit, [facility]. Patient does not meet inpatient psychiatric criteria. He will be discharged home at this time with a safety plan. Patient in agreement this plan. Diagnosis/symptom? @ -Encounter for psychiatric evaluation, alcohol intoxication Acute, or Chronic, or Acute on Chronic? @ -Acute Uncomplicated (without systemic symptoms) or Complicated (systemic symptoms)? @ -Complicated Side effects of treatment? @ -None Exacerbation, Progression, or Severe Exacerbation] @ -No Poses a threat to life or bodily function? @ -Unlikely (Jd Hernandez) - Lab Data Lab Results 03/31/24 03/31/24 03/31/24 Range/Units 01:15 01:15 06:31 WBC 9.5 (3.8-10.6) k/uL RBC 4.61 (4.30-5.90) m/uL Hgb 15.5 (13.0-17.5) gm/dL Hct 45.5 (39.0-53.0) % MCV 98.6 (80.0-100.0) fL MCH 33.5 (25.0-35.0) pg MCHC 34.0 (31.0-37.0) g/dL RDW 13.0 (11.5-15.5) % Plt Count 309 (150-450) k/uL MPV 7.4 Neutrophils % 53 % Lymphocytes % 32 % Monocytes % 6 % Eosinophils % 6 % Basophils % 1 % Neutrophils # 5.0 (1.3-7.7) k/uL Lymphocytes # 3.1 (1.0-4.8) k/uL Monocytes # 0.5 (0-1.0) k/uL Eosinophils # 0.6 (0-0.7) k/uL Basophils # 0.1 (0-0.2) k/uL Sodium 142 (137-145) mmol/L Potassium 4.1 (3.5-5.1) mmol/L Chloride 106 (98-107) mmol/L Carbon Dioxide 26 (22-30) mmol/L Anion Gap 10 mmol/L BUN 8 L (9-20) mg/dL Creatinine 0.56 L (0.66-1.25) mg/dL Est GFR (CKD-EPI)AfAm >90 (>60 ml/min/1.73 sqM) Est GFR (CKD-EPI)NonAf >90 (>60 ml/min/1.73 sqM) Glucose 110 H (74-99) mg/dL Calcium 9.1 (8.4-10.2) mg/dL Total Bilirubin 0.5 (0.2-1.3) mg/dL AST 47 (17-59) U/L ALT 59 H (4-49) U/L Alkaline Phosphatase 43 (38-126) U/L Total Protein 7.5 (6.3-8.2) g/dL Albumin 4.6 (3.5-5.0) g/dL Salicylates <1.0 mg/dL Urine Opiates Screen Detected H (NotDetected) Ur Oxycodone Screen Not Detected (NotDetected) Urine Methadone Screen Not Detected (NotDetected) Acetaminophen <10.0 ug/mL Ur Barbiturates Screen Not Detected (NotDetected) U Tricyclic Antidepress Not Detected (NotDetected) Ur Phencyclidine Scrn Not Detected (NotDetected) Ur Amphetamines Screen Not Detected (NotDetected) U Methamphetamines Scrn Not Detected (NotDetected) U Benzodiazepines Scrn Detected H (NotDetected) Urine Cocaine Screen Not Detected (NotDetected) U Marijuana (THC) Screen Detected H (NotDetected) Serum Alcohol 172 mg/dL Disposition <Josias Garcia - Last Filed: 03/31/24 03:31> Is patient prescribed a controlled substance at d/c from ED?: No Time of Disposition: 10:32 <Jd Hernandez - Last Filed: 03/31/24 10:33> Clinical Impression: Alcohol intoxication, Encounter for psychiatric assessment Disposition: HOME SELF-CARE Condition: Good Additional Instructions: follow safety plan Referrals: None,Stated [Primary Care Provider] - 1-2 days
[2024-03-31 07:14] LABS: Cocaine Screen,Urine Not Detected (NotDetected); Phencyclidine Screen,Urine Not Detected (NotDetected); Urn Cannabinoid Scrn Detected (NotDetected)
[2024-03-31 07:15] LABS: Amphetamine Screen,Urine Not Detected (NotDetected); Barbiturate Screen,Urine Not Detected (NotDetected); Benzodiazepines Screen,Urine Detected (NotDetected); Methadone Screen, Urine Not Detected (NotDetected); Opiate Screen,Urine Detected (NotDetected); Oxycodone Screen, Urine Not Detected (NotDetected); Tricyclic Antidepressant,Urine Not Detected (NotDetected)
[2024-03-31 10:44] VITALS: BP 160/88; PULSE 104; RESP 18
== END 2024-03-31 10:44 | disposition home or self-care (01) ==
LOC: EC 00:47
DX: Z00.8 Encounter for other general examination (principal); F10.129 Alcohol abuse with intoxication, unspecified; F17.200 Nicotine dependence, unspecified, uncomplicated
CPT/HCPCS: 82075; 36415; 93005; 80053; 85025; 80306; 80143; 80179; 99284; G0480; 80320